=== PATIENT | male | born 1965 | race Caucasian/White ===

== ENCOUNTER 2025-05-10 15:32 | Emergency (ER) | payer MEDICARE, MEDICAID ==
[~2025-05-10] VITALS: Ht 172.7 cm; Wt 79.0 kg
[2025-05-10 15:44] VITALS: TEMP 37.2; O2SAT 98
[2025-05-10 19:52] VITALS: BP 139/85; PULSE 102; RESP 12; O2SAT 97
== END 2025-05-10 19:55 | disposition home or self-care (01) ==
LOC: ER 15:32 → CMPBEDREQ 05-11 03:16
DX: R53.1 Weakness (principal); I69.30 Unspecified sequelae of cerebral infarction
CPT/HCPCS: 71045; 99283